=== PATIENT | male | born 1960 | race African-American/Black ===

== ENCOUNTER 2016-11-19 00:55 | Emergency (ER) | payer MEDICAID ==
[~2016-11-19] VITALS: Ht 167.6 cm; Wt 68.0 kg
[2016-11-19 04:30] VITALS: BP 140/72
== END 2016-11-19 05:46 | disposition home or self-care (01) ==
LOC: ER 00:55
DX: R05 Cough (principal); R50.9 Fever, unspecified; F17.210 Nicotine dependence, cigarettes, uncomplicated
CPT/HCPCS: 71010; 99283

== ENCOUNTER 2017-03-11 21:02 | Emergency (ER) | payer MEDICAID ==
[~2017-03-11] VITALS: Ht 167.6 cm; Wt 68.0 kg
[2017-03-12] MEDS ORDERED: IBUPROFEN 600MG TABLET PO ONE (00:30)
[2017-03-12] MEDS ORDERED: HYDROCODONE/ACETAMINOPHEN 5/325MG TABLET PO ONE (00:30)
[2017-03-12 03:09] VITALS: BP 112/67
== END 2017-03-12 03:10 | disposition home or self-care (01) ==
LOC: ER 21:02
DX: S83.91XA Sprain of unspecified site of right knee, initial encounter (principal); S50.02XA Contusion of left elbow, initial encounter; M54.5 Low back pain; Y08.89XA Assault by other specified means, initial encounter; Y93.89 Activity, other specified; Y92.89 Other specified places as the place of occurrence of the external cause; Y99.8 Other external cause status
CPT/HCPCS: 73080; 73562; 99284

== ENCOUNTER 2017-07-09 07:31 | Emergency (ER) | payer MEDICAID ==
[~2017-07-09] VITALS: Ht 167.6 cm; Wt 73.0 kg
[2017-07-09] MEDS ORDERED: KETOROLAC 60MG/2ML VIAL IM ONE (08:45)
[2017-07-09 10:25] VITALS: BP 130/71
== END 2017-07-09 10:55 | disposition home or self-care (01) ==
LOC: ER 07:35
DX: M25.561 Pain in right knee (principal); M54.5 Low back pain; M19.90 Unspecified osteoarthritis, unspecified site; F17.200 Nicotine dependence, unspecified, uncomplicated
CPT/HCPCS: 73562; 96372; 99284; J1885; Z7610

== ENCOUNTER 2017-08-28 13:44 | Emergency (ER) | payer MEDICAID ==
[~2017-08-28] VITALS: Ht 167.6 cm; Wt 68.0 kg
[2017-08-28 14:29] LABS: BASOPHILS % 0.8 % (0.0-2.0); EOSINOPHILS % 4.7 % (0.0-5.0); HEMATOCRIT. 42.3 % (42.0-52.0); HEMOGLOBIN. 13.7 g/dL (14.0-18.0); LYMPHOCYTES % 37.3 % (20.0-50.0); MEAN CORPUSCULAR HEMOGLOBIN 30.8 pg (28.0-32.0); MEAN PLATELET VOLUME 9.2 fl (7.4-10.4); MONOCYTES % 8.6 % (2.0-8.0); NEUTROPHILS % 48.6 % (40.0-76.0); PLATELET 237 x1000/uL (130-400); RED BLOOD CELL COUNT 4.45 mill/uL (4.7-6.1); RED CELL DISTRIBUTION WIDTH 13.5 % (11.6-14.6)
[2017-08-28 14:34] LABS: CHLORIDE 107 mEq/L (98-107)
[2017-08-28 14:42] LABS: CARBON DIOXIDE 32 mEq/L (21-32)
[2017-08-28 18:37] VITALS: BP 134/96
== END 2017-08-28 18:39 | disposition home or self-care (01) ==
LOC: ER 14:15
DX: M70.32 Other bursitis of elbow, left elbow (principal); M19.90 Unspecified osteoarthritis, unspecified site; F14.10 Cocaine abuse, uncomplicated
CPT/HCPCS: 36415; 73080; 80053; 84550; 85025; 99285

== ENCOUNTER 2024-01-31 01:30 | Emergency (ER) | payer MEDICARE, MEDICAID ==
[~2024-01-31] VITALS: Ht 167.6 cm; Wt 73.0 kg
[2024-01-31 03:05] LABS: CHLORIDE 106 mEq/L (98-107); SODIUM 138 mEq/L (136-145)
[2024-01-31 03:06] LABS: CARBON DIOXIDE 23 mEq/L (21-32)
[2024-01-31 03:07] LABS: CALCIUM 8.8 mg/dL (8.7-10.4)
[2024-01-31 03:11] LABS: BASOPHILS % 0.7 % (0.0-2.0); CREATININE 1.3 mg/dL (0.6-1.3); EOSINOPHILS % 2.5 % (0.0-5.0); GLUCOSE 129 mg/dL (70-105); HEMATOCRIT. 38.4 % (42.0-52.0); HEMOGLOBIN. 12.5 g/dL (14.0-18.0); LYMPHOCYTES % 16.5 % (20.0-50.0); MEAN CORPUSCULAR HEMOGLOBIN 30.9 pg (28.0-32.0); MEAN CORPUSCULAR HGB CONC 32.6 g/dL (31.0-37.0); MEAN CORPUSCULAR VOLUME 94.7 fL (80.0-94.0); MEAN PLATELET VOLUME 8.1 fl (7.4-10.4); MONOCYTES % 12.1 % (2.0-8.0); NEUTROPHILS % 68.2 % (40.0-76.0); PLATELET 199 x1000/uL (130-400); RED BLOOD CELL COUNT 4.06 mill/uL (4.7-6.1); RED CELL DISTRIBUTION WIDTH 14.9 % (11.6-14.6); UREA NITROGEN BLOOD 24 mg/dL (9-23); WHITE BLOOD COUNT 5.4 x1000/uL (4.5-11.0)
[2024-01-31 03:13] LABS: ALANINE AMINOTRANSFERASE 75 IU/L (10-49); ALBUMIN 3.4 g/dL (3.2-4.8); ASPARTATE AMINOTRANSFERASE 84 IU/L (<34)
[2024-01-31 03:14] LABS: BILIRUBIN TOTAL 0.6 mg/dL (0.1-1.0); PROTEIN TOTAL 6.8 g/dL (6.0-8.3)
[2024-01-31 04:39] VITALS: O2SAT 99
[2024-01-31] MEDS: LABETALOL 5MG/ML 4ML INJ IV ONE ×2 (09:08→10:13)
[2024-01-31] MEDS ORDERED: ACETAMINOPHEN 325MG TABLET PO ONE (09:30)
[2024-01-31 09:51] LABS: TROPONIN I HIGH SENSITIVITY 4 ng/L (3.0-53)
[2024-01-31] MEDS: IBUPROFEN 400MG TABLET PO ONE (10:12)
[2024-01-31 12:16] VITALS: BP 146/92; PULSE 81; RESP 20; TEMP 98.3
== END 2024-01-31 12:27 | disposition home or self-care (01) ==
LOC: ER 01:51
DX: M54.9 Dorsalgia, unspecified (principal); M79.89 Other specified soft tissue disorders; F14.90 Cocaine use, unspecified, uncomplicated
CPT/HCPCS: 99284; 96374; 80053; 83880; 85025; 84484; 36415; 93005; 96376; J3490